=== PATIENT | female | born 1990 | race Asian ===

== ENCOUNTER 2018-05-12 10:52 | Emergency (ER) | payer OTHER ==
[~2018-05-12] VITALS: Ht 172.7 cm; Wt 72.7 kg
--- NOTE | 2018-05-12 12:00 | REP ---
CT Head without contrast HISTORY: Trauma COMPARISON: None There is no intraparenchymal hemorrhage, acute infarct, mass or midline shift. The ventricular system is normal in appearance. There is no extra cerebral collection. There is no fracture. The visualized sinuses are clear. Soft tissue swelling is present overlying the left parietal bone at the vertex. IMPRESSION: There is no intracranial lesion. Electronically Signed by Dominick Naqvi MD 05/12/2018 11:52 A
--- NOTE | 2018-05-12 12:03 | REP ---
CT cervical spine without contrast HISTORY: Fall COMPARISON: None There is no acute fracture or subluxation. There is no disc bulge or herniation. The spinal canal and neural foramina are patent. The intervertebral discs and vertebral bodies are normal in height. IMPRESSION: There is no acute fracture or subluxation. Electronically Signed by Dominick Naqvi MD 05/12/2018 11:55 A
--- NOTE | 2018-05-12 12:08 | REP ---
CT thoracic spine without contrast. HISTORY: Fall COMPARISON : None There is no acute fracture or subluxation. There is no disc bulge or herniation. The spinal canal and neural foramina are patent. The intervertebral discs and vertebral bodies are normal in height. IMPRESSION: There is no acute fracture or subluxation. Electronically Signed by Dominick Naqvi MD 05/12/2018 12:00 P
--- NOTE | 2018-05-12 12:12 | REP ---
CT Lumbar Spine without contrast HISTORY: Fall COMPARISON: None There is no disc bulge or herniation at the L1-2 through L3-4 and L5 S1 levels. The nerves exit the neural foramina without compression. A diffuse disc bulge is present at the L4-5 level. There is minimal compression of the thecal sac. The L4 nerves exit the neural foramina without compression. The intervertebral discs and vertebral bodies are normal in height. There is no acute fracture or subluxation. IMPRESSION: Diffuse disc bulge at the L4-5 level with minimal thecal sac compression. Electronically Signed by Dominick Naqvi MD 05/12/2018 12:03 P
[2018-05-12] MEDS ORDERED: ACETAMINOPHEN 325 MG TAB PO ONE (13:00)
[2018-05-12 13:23] VITALS: BP 111/63
== END 2018-05-12 13:29 | disposition home or self-care (01) ==
LOC: M ED 10:52
DX: S00.93XA Contusion of unspecified part of head, initial encounter (principal); W00.9XXA Unspecified fall due to ice and snow, initial encounter; Y92.59 Other trade areas as the place of occurrence of the external cause; Y93.89 Activity, other specified; M54.9 Dorsalgia, unspecified

== ENCOUNTER 2018-05-14 14:41 | Emergency (ER) | payer OTHER ==
[~2018-05-14] VITALS: Ht 172.7 cm; Wt 72.7 kg
[2018-05-14] MEDS ORDERED: CYCLOBENZAPRINE 10 MG TAB PO ONE (15:15)
[2018-05-14] MEDS ORDERED: MORPHINE 10 MG/ML 1ML VIAL (J2270) IM ONE (15:15)
[2018-05-14] MEDS ORDERED: IBUP80TA PO (15:53)
[2018-05-14] MEDS ORDERED: CYCL10TA PO (15:53)
[2018-05-14 16:01] VITALS: BP 118/79
== END 2018-05-14 16:06 | disposition home or self-care (01) ==
LOC: M ED 14:41
DX: S16.1XXA Strain of muscle, fascia and tendon at neck level, initial encounter (principal); W19.XXXA Unspecified fall, initial encounter; Y92.019 Unspecified place in single-family (private) house as the place of occurrence of the external cause
CPT/HCPCS: 96372; 99283; J2270

== ENCOUNTER 2018-07-10 11:10 | Emergency (ER) | payer OTHER ==
[~2018-07-10] VITALS: Ht 172.7 cm; Wt 70.5 kg
[2018-07-10 11:10] VITALS: BP 126/70
[~2018-07-10 11:10] MED LIST: CYCL10TA PO; IBUP80TA PO
--- NOTE | 2018-07-10 12:12 | REP ---
Right wrist: Four views. History: Injury in a fall. Findings: Four views of the right wrist demonstrate overall normal mineralization. There is no evidence of fracture or subluxation. Bones, joints and soft tissues are otherwise unremarkable. Impression: Negative right wrist radiographs. Electronically Signed by Ian Crabtree MD 07/10/2018 12:04 P
--- NOTE | 2018-07-10 12:13 | REP ---
Right ankle series: Four views. History: Injury in a fall. Findings: Four views right ankle demonstrate clothing artifact. Ankle mortise is intact. No fractures seen. Impression: No fracture noted. Electronically Signed by Ian Crabtree MD 07/10/2018 12:05 P
== END 2018-07-10 13:18 | disposition home or self-care (01) ==
LOC: M ED 11:10
DX: S93.401A Sprain of unspecified ligament of right ankle, initial encounter (principal); S63.601A Unspecified sprain of right thumb, initial encounter; W00.0XXA Fall on same level due to ice and snow, initial encounter; Y92.096 Garden or yard of other non-institutional residence as the place of occurrence of the external cause

== ENCOUNTER 2018-07-30 16:57 | Emergency (ER) | payer OTHER ==
[~2018-07-30] VITALS: Ht 172.7 cm; Wt 72.7 kg
[2018-07-30 17:57] LABS: BASO % 0.4 % (0.0-1.0); EOS # 0.1 10^3/uL (0.0-0.50); HEMATOCRIT 38.6 % (36.0-47.0); HEMOGLOBIN 13.1 g/dl (12.0-15.5); LYMPH # 2.2 10^3/uL (1.5-6.5); LYMPH % 40.2 % (24.0-44.0); MEAN CORPUSCULAR HEMOGLOBIN 31.2 pg (27.0-33.0); MEAN CORPUSCULAR HGB CONC 33.9 g/dl (32.0-36.5); MEAN CORPUSCULAR VOLUME 91.9 fl (80.0-96.0); MONO # 0.6 10^3/uL (0.0-0.8); MONO % 10.4 % (0.0-5.0); NEUTROPHILS # 2.6 10^3/uL (1.8-7.7); NEUTROPHILS % 46.8 % (36.0-66.0); PLATELET COUNT, AUTOMATED 254 10^3/uL (150-450); WHITE BLOOD COUNT 5.6 10^3/uL (4.0-10.0)
[2018-07-30 18:22] LABS: BLOOD UREA NITROGEN 14 MG/DL (7-18); CALCIUM LEVEL 8.6 MG/DL (8.5-10.1); CARBON DIOXIDE LEVEL 26 MEQ/L (21-32); CHLORIDE LEVEL 110 MEQ/L (98-107); CK-MB VALUE MASS < 1.0 NG/ML (<3.6); CPK CREATINE PHOSPHOKINASE 70 U/L (26-192); CREATININE FOR GFR 0.64 MG/DL (0.55-1.30); GLOMERULAR FILTRATION RATE > 60.0 (>60); GLUCOSE, FASTING 107 MG/DL (70-100); MB/CK RELATIVE INDEX 1.43 (< OR =4); POTASSIUM SERUM 4.1 MEQ/L (3.5-5.1); SODIUM LEVEL 143 MEQ/L (136-145); TROPONIN I < 0.02 NG/ML (< 0.10)
--- NOTE | 2018-07-30 19:30 | ECGEPIP ---
Stationary ECG Study [facility] - ED Test Date: 2018-07-30 Pat Name: SHANNAN ALSTON Department: Room: - Gender: F [employer] Operator: ilya : 1990 Requested By: MENDEL Middleton PA-C Order Number: [id number] Reading MD: Victor M Olsen Measurements Intervals [place] Rate: 68 P: 60 ND: 168 QRS: 60 QRSD: 92 T: 42 QT: 393 QTc: 419 Interpretive Statements SINUS RHYTHM BENIGN EARLY REPOLARIZATION NO PRIORS FOR COMPARISON Electronically Signed On 07-30-2018 19:30:24 EDT by Victor M Olsen
[2018-07-30 19:55] VITALS: BP 120/79
--- NOTE | 2018-07-31 09:35 | REP ---
PA and lateral chest: There are no comparisons. The lung encinas are clear. The cardiac size is normal. The krystle, mediastinum, and skeletal structures are unremarkable. Impression: Negative PA and lateral chest. Electronically Signed by Alexander Loving MD 07/31/2018 07:07 A
== END 2018-07-30 20:06 | disposition home or self-care (01) ==
LOC: M ED 16:57
DX: F41.9 Anxiety disorder, unspecified (principal); Z73.3 Stress, not elsewhere classified

== ENCOUNTER 2019-03-23 11:35 | Emergency (ER) | payer OTHER ==
[~2019-03-23] VITALS: Ht 172.7 cm; Wt 76.0 kg
--- NOTE | 2019-03-23 12:15 | REP ---
Clinical: Trauma. Technique: AP, lateral, bilateral oblique views right hand . Findings: The osseous structures and joint spaces are intact and normal. There is no evidence for acute fracture or dislocation. Surrounding soft tissues are unremarkable. No subcutaneous emphysema or radiodense foreign body. Impression: Age-appropriate right hand series . No acute fracture or dislocation. Electronically Signed by Sky Coates MD 03/23/2019 12:06 P
--- NOTE | 2019-03-23 12:16 | REP ---
Clinical: Trauma. Technique: AP, lateral, bilateral oblique views right wrist. Findings: The carpal bones, surrounding osseous structures, soft tissues, and joint spaces are normal. There is no evidence for acute fracture or dislocation. No subcutaneous emphysema or radiodense foreign body. Impression: Normal wrist series. No acute fracture or dislocation Electronically Signed by Sky Coates MD 03/23/2019 12:07 P
[2019-03-23 13:43] VITALS: BP 117/59
== END 2019-03-23 13:46 | disposition home or self-care (01) ==
LOC: M ED 11:35
DX: S60.221A Contusion of right hand, initial encounter (principal); W22.8XXA Striking against or struck by other objects, initial encounter; Y93.9 Activity, unspecified; Y99.1 Military activity

== ENCOUNTER 2019-05-16 14:07 | Emergency (ER) | payer OTHER ==
--- NOTE | 2019-05-16 15:55 | REP ---
CT BRAIN WITHOUT IV CONTRAST: CT brain performed without IV contrast. Coronal reconstruction images are performed. Ventricles are normal in size and position with no midline shift or mass effect. Solis/white differentiation is well maintained. There is no acute intracranial hemorrhage or extra-axial fluid collection. No skull fracture is seen. The visualized paranasal sinuses are clear with no air fluid levels. IMPRESSION: Negative noncontrast CT brain. Electronically Signed by Alexander Solis MD 05/17/2019 07:57 P
[2019-05-16] MEDS ORDERED: ONDANSETRON 4 MG ORAL DISINTEGRATING TAB (Q0162 PER 1MG) PO ONE (16:00)
[2019-05-16] MEDS ORDERED: ACETAMINOPHEN 325 MG TAB PO ONE (16:00)
[2019-05-16] MEDS ORDERED: diphenhydrAMINE 25 MG CAP PO ONE (16:00)
[2019-05-16] MEDS ORDERED: ONDA4TAB6 PO (16:05)
[2019-05-16 16:11] VITALS: BP 129/74
== END 2019-05-16 16:16 | disposition home or self-care (01) ==
LOC: EDBD 14:07 → M ED 14:07
DX: S06.0X0A Concussion without loss of consciousness, initial encounter (principal); S00.03XA Contusion of scalp, initial encounter; V48.4XXA Person boarding or alighting a car injured in noncollision transport accident, initial encounter; Y92.89 Other specified places as the place of occurrence of the external cause
CPT/HCPCS: 70450; 99284; Q0162